=== PATIENT | female | born 1955 | race Caucasian/White ===

== ENCOUNTER 2020-06-13 14:37 | Outpatient (CLI) | payer BC, SELFPAY ==
--- NOTE | ~2020-06-13 | CT_ITS ---
EXAMINATION: CT abdomen pelvis wo con EXAM DATE: 06/13/2020 14:59 INDICATION: Right lower quadrant pain for one day. TECHNIQUE: Spiral CT of the abdomen and pelvis was performed without contrast. Axial, coronal and s agittal images were reviewed. The dose-length product (DLP) for this examination was 225.08 mGy-cm. The exposure was tailored according to patient size (auto mA exposure control), and iterative recons truction (ASIR) was used as additional dose reduction technique. There is no prior study for compari son. FINDINGS: The liver, spleen, adrenal glands and pancreas are unremarkable. Gallbladder is unremarkab le. No biliary obstruction. There is no nephrolithiasis or hydronephrosis. The uterus is unremark able. The bladder is unremarkable. There is no retroperitoneal or pelvic lymphadenopathy. The appendix is normal. The stomach and small bowel are unremarkable. There is mild sigmoid colonic diverticulosis. There is no adjacent inflammatory change to suggest diverticulitis. No free intrape ritoneal gas. The heart is normal in size. There are no pericardial or pleural effusions. The jamie g bases are unremarkable. The bones are unremarkable. IMPRESSION: No acute intra-abdominal findings. Mild colonic diverticulosis. Reviewed, dictated and finalized at location A.
== END 2020-06-13 14:38 | disposition home or self-care (01) ==
PROVIDERS: PCP Family Medicine Adolescent Medicine; Visit Provider Physician Assistant
DX: R10.31 Right lower quadrant pain (principal); K57.90 Diverticulosis of intestine, part unspecified, without perforation or abscess without bleeding
CPT/HCPCS: 74176

== ENCOUNTER → 2021-03-18 15:47 | Outpatient (CLI) | payer BC, SELFPAY ==
--- NOTE | ~2021-03-18 | MM_ITS ---
EXAMINATION: MM screening leonel BI w leon HISTORY: Screening mammogram, family history of breast cancer in her mother. TECHNIQUE: Craniocaudal and mediolateral oblique 3-D tomosynthesis images were obtained and synthetic 2-D images were generated. CAD analysis was submitted and interpreted. COMPARISON: 08/28/2018, 08/24/2017, 07/26/2016 BREAST PARENCHYMAL COMPOSITION: There are scattered areas of fibroglandular density. FINDINGS: There is no evidence of suspicious mass, calcification, or architectural distortion to sugg est malignancy in either breast. There has been no suspicious interval change. IMPRESSION: 1. No mammographic evidence of malignancy. 2. Recommend routine screening mammography in one year. BI-RADS Category 1: Negative Reviewed, dictated and finalized at location A.
== END ==
PROVIDERS: PCP Family Medicine Adolescent Medicine; Visit Provider Family Medicine Adolescent Medicine
DX: Z12.31 Encounter for screening mammogram for malignant neoplasm of breast (principal)
CPT/HCPCS: 77063; 77067

== ENCOUNTER → 2022-05-28 13:43 | Outpatient (CLI) | payer MEDICARE, OTHER, SELFPAY ==
--- NOTE | ~2022-05-28 | MM_ITS ---
EXAMINATION: MM screening leonel BI w leon HISTORY: Screening TECHNIQUE: Craniocaudal and mediolateral oblique 3-D tomosynthesis images were obtained and synthetic 2-D images were generated. CAD analysis was submitted and interpreted. COMPARISON: Comparison to multiple prior studies sequentially, with oldest reviewed study dated 07/03. BREAST PARENCHYMAL COMPOSITION: Breast composed of scattered areas of fibroglandular density FINDINGS: There is no evidence of suspicious mass, calcification, or architectural distortion to sugg est malignancy in either breast. There has been no suspicious interval change. IMPRESSION: 1. No mammographic evidence of malignancy. 2. Recommend routine screening mammography in one year. BI-RADS Category 1: Negative Reviewed, dictated and finalized at location A.
== END ==
PROVIDERS: PCP Family Medicine Adolescent Medicine; Visit Provider Family Medicine Adolescent Medicine
DX: Z12.31 Encounter for screening mammogram for malignant neoplasm of breast (principal)
CPT/HCPCS: 77063; 77067

== ENCOUNTER 2023-03-30 22:22 | Emergency (ER) | payer MEDICARE, OTHER, SELFPAY ==
--- NOTE | ~2023-03-30 | CT_ITS ---
CT of the Abdomen and Pelvis: Indication: Abdominal pain Technique: 2.5 mm axial scans were obtained through the abdomen and pelvis following intravenous adm inistration of 100 cc of Omnipaque 350. Dose reduction technique was used on this scan by utilizing a utomated exposure control and iterative reconstruction technique. The dose-length product (DLP) was 2 86.18 mGy-cm. COMPARISON: 06/13/2020 Findings: Scans through the lung bases are unremarkable. The liver, spleen, pancreas, gallbladder, adrenals and kidneys are within normal limits. No evidence of aortic aneurysm. No lymphadenopathy. There is focal wall thickening and mild inflammatory change at the proximal sigmoid colon, consistent with mild acute diverticulitis. No abscess or free air. No bowel obstruction. Images through the pelvis were performed. Urinary bladder unremarkable. No adnexal mass evident. No a scites. Impression: Mild acute diverticulitis of the proximal sigmoid colon. No abscess or free air. Reviewed, dictated and finalized at [facility]. Impression: Mild acute diverticulitis of the proximal sigmoid colon. No abscess or free air .
[2023-03-30 22:24] VITALS: BP 148/77; PULSE 90; RESP 14; TEMP 36.4; O2SAT 98
[2023-03-30 22:36] LABS: Basophils Absolute Auto 0.1 K/mm3 (0.0-0.1); Basophils Percent Auto 0.6 % (0.2-1.2); Eosinophils Absolute Auto 0.1 K/mm3 (0-0.3); Eosinophils Percent Auto 0.9 % (0-4.4); Hematocrit 39.9 % (37.0-47.0); Hemoglobin 13.4 g/dL (12.0-15.0); Immature Granulocyte Absolute 0.02 K/mm3 (0.00-0.031); Immature Granulocyte Percent A 0.2 % (0-0.5); Lymphocytes Absolute Auto 1.89 K/mm3 (0.9-3.2); Lymphocytes Percent Auto 17.9 % (18.3-44.2); Mean Corpuscular HGB Conc 33.6 g/dl (32-36); Mean Corpuscular Volume 92.4 fl (80-100); Mean Platelet Volume 10.9 fl (7.4-10.4); Monocytes Absolute Auto 0.6 K/mm3 (0.1-0.6); Monocytes Percent Auto 6.1 % (2.6-8.5); Neutrophils Absolute Auto 7.9 K/mm3 (1.3-6.7); Neutrophils Percent Auto 74.3 % (45.5-73.1); Platelet Count Result 252 k/mm3 (150-375); Red Blood Count 4.32 M/mm3 (4.2-5.4); Red Cell Distribution Width 12.7 % (11.5-14.5); White Blood Count 10.6 K/mm3 (4.5-10.0)
[2023-03-30 22:50] LABS: Alanine Aminotransferase 24 U/L (6-35); Albumin Level 4.5 g/dL (3.5-5.1); Alkaline Phosphatase 72 U/L (38-126); Anion Gap 3 mmol/L (8-16); Aspartate Amino Transferase 28 U/L (14-36); Bilirubin,Total 0.5 mg/dL (0.2-1.3); Blood Urea Nitrogen 23 mg/dL (7-17); Calcium 9.1 mg/dL (8.4-10.2); Carbon Dioxide 29 mmol/L (22-30); Chloride 106 mmol/L (98-107); Estimated CRCL calculation 45 ml/min; Estimated Glomerular Filt Rate > 60; Glucose 113 mg/dL (65-110); Lipase 124 U/L (23-300); Sodium 138 mmol/L (137-145)
[2023-03-30 23:10] LABS: Appearance Urine Clear (Clear); Bacteria Urine None Seen /hpf; Bilirubin Urine Negative (Negative); Blood Urine Negative (Negative); Color Urine Yellow (Yellow); Glucose Urine UA Negative (Negative); Ketones Urine Negative (Negative); Leukocyte Esterase Ur 1+ LEU/UL (Negative); Nitrate Urine Negative (Negative); Non Pathogenic Casts 0-2; Protein Urine Negative (Negative); RBC Urine 0-2 /hpf (0-2); Specific Grav Ur 1.027 (1.001-1.035); Squamous Epithelial Cell Urine None seen /hpf (Few); Urobilinogen Urine 0.2 mg/dL (<2.0); pH Urine 5.5 (5.0-9.0)
[2023-03-30 23:17] LABS: Add Urine Microscopic? YES
[2023-03-31 00:26] VITALS: PULSE 75; RESP 17; O2SAT 99
[2023-03-31 00:32] VITALS: BP 113/92
--- NOTE | 2023-03-31 01:14 | ED.ABDPAIN ---
HPI - Abdominal Pain General Chief Complaint: Abdominal Pain Stated Complaint: abdominal pain Time Seen by Provider: 03/31/23 00:24 History of Present Illness HPI narrative: 67-year-old female with history of diverticulitis presented the emergency department for evaluation of left lower quadrant pain that started approximately 4 PM today. Patient reports the pain started is more of like a bloating and cramping pain but then after a walk the pain became more sharp at approximately 6 PM. Patient denies any associated nausea vomiting diarrhea. Patient denies any associated chest pain or shortness of breath. Patient denies any change in bowel habits and denies any blood in her stool. Patient reports her last episode of diverticulitis was approximately 1 year ago, patient states that she has had a colonoscopy by Dr. Escalona but is unsure when she had that. Related Data Home Medications Medication Instructions Recorded Confirmed ciprofloxacin HCl 500 mg tablet 500 mg PO Q12H 01/21/22 01/21/22 (Cipro) metronidazole 500 mg tablet 500 mg PO TID 01/21/22 01/21/22 Allergies Allergy/AdvReac Type Severity Reaction Status Date / Time codeine Allergy Unknown vomitting Verified 03/31/23 00:32 Review of Systems Review of Systems: All systems reviewed & are unremarkable except as noted in HPI and below PMFSH Surgical History Surgical History (Updated 01/19/22 @ 14:56 by Akiko Figueroa) Hx of breast biopsy Family History Family History (Updated 01/21/22 @ 11:16 by Divya Barker MA) Father Acute myocardial infarction AAA (abdominal aortic aneurysm) Heart disease Mother Diabetes mellitus Breast cancer Diverticular disease Grandparent Acute myocardial infarction Cerebrovascular accident Diabetes mellitus Heart disease Pancreatic cancer Daughter Asthma Other Diabetes mellitus Sibling Diverticular disease Social History Social History (Updated 01/21/22 @ 11:18 by Divya Barker MA) Smoking status: Never smoker Second hand tobacco smoke exposure: No Alcohol intake: current Alcohol use details: occasional Substance use: never Substance use type: does not use Living arrangements: with family Occupation/Education: retired Gender identity (if verbalized by the patient): Female Sexual Orientation (if Verbalized by the Patient): Straight or Heterosexual Spiritual care concerns: No Agree to blood products: Yes Exam Narrative: APPEARANCE: Well appearing, no pain, no distress, well-nourished. HEAD: normocephalic, atraumatic. EYES: PERRLA/EOMI, conjunctivae clear. NOSE: Normal no drainage NECK: Supple. No adenopathy, no masses. RESPIRATORY: Airway patent, respirations nonlabored. Clear to auscultation bilaterally, no rales, rhonchi, wheezing. CARDIOVASCULAR: Regular rate and rhythm without murmurs rubs or gallops. ABDOMINAL: Soft, nondistended, normal bowel sounds, left lower quadrant tenderness to palpation without evidence of peritonitis MUSCULOSKELETAL: Moves all extremities. Strength/ROM intact, No edema, No calf tenderness. NEURO: Alert. Cranial nerves II through XII intact. Grossly intact SKIN: Warm, dry. Normal Color Course Course Emergency Course: 67-year-old female presented the ED for evaluation of left lower quadrant pain. Patient has a mild leukocytosis and has a normal hemoglobin. No evidence of urinary tract infection and patient's CMP was noncontributory. Patient was updated on the plan to order a CT scan to evaluate for diverticulitis. Patient declined any medications for pain control. Patient CT scan did show evidence of uncomplicated diverticulitis. Patient was treated with p.o. Augmentin in the emergency department. Patient was discharged home with Augmentin. Patient was encouraged to have follow-up with her GI physician. All questions and concerns were addressed and patient was comfortable with the plan for discharge and close follow-up. Vital Si
[2023-03-31] MEDS: AMOXICILLIN/CLAVULANATE K 875-125 MG TAB 1 TABLET PO (05:21)
== END 2023-03-31 05:25 | disposition home or self-care (01) ==
PROVIDERS: Emergency Provider Emergency Medicine; PCP Family Medicine Adolescent Medicine
DX: K57.92 Diverticulitis of intestine, part unspecified, without perforation or abscess without bleeding (principal)
CPT/HCPCS: 36415; 74177; 80053; 81001; 83690; 85025; 87086; 99284; A9270; Q9967

== ENCOUNTER → 2023-07-28 11:14 | Outpatient (CLI) | payer MEDICARE, OTHER, SELFPAY ==
--- NOTE | ~2023-07-28 | MM_ITS ---
EXAMINATION: MM screening leonel BI w leon HISTORY: Screening mammogram TECHNIQUE: Craniocaudal and mediolateral oblique 3-D tomosynthesis images were obtained and synthetic 2-D images were generated. CAD analysis was submitted and interpreted. COMPARISON: 05/28/2022, 6 I , 08/28/2018 bilateral screening mammogram examinations BREAST PARENCHYMAL COMPOSITION: There are scattered areas of fibroglandular density. FINDINGS: There is no evidence of suspicious mass, calcification, or architectural distortion to sugg est malignancy in either breast. There has been no suspicious interval change. IMPRESSION: 1. No mammographic evidence of malignancy. 2. Recommend routine screening mammography in one year. BI-RADS Category 1: Negative Reviewed, dictated and finalized at location A.
== END ==
PROVIDERS: PCP Family Medicine Adolescent Medicine; Visit Provider Family Medicine Adolescent Medicine
DX: Z12.31 Encounter for screening mammogram for malignant neoplasm of breast (principal)
CPT/HCPCS: 77063; 77067

== ENCOUNTER 2024-09-24 13:20 | Outpatient (CLI) | payer MEDICARE, OTHER, SELFPAY ==
--- NOTE | ~2024-09-24 | MM_ITS ---
EXAMINATION: MM screening leonel BI w leon HISTORY: Screening TECHNIQUE: Craniocaudal and mediolateral oblique 3-D tomosynthesis images were obtained and synthetic 2-D images were generated. CAD analysis was submitted and interpreted. COMPARISON: 07/28/2023 and dating back to 03/18/2021 BREAST PARENCHYMAL COMPOSITION: There are scattered areas of fibroglandular density. FINDINGS: Punctate calcifications detected bilaterally, stable and benign in appearance Stable parenchymal pattern without suspicious microcalcifications, architectural distortion, discrete masses or significant asymmetry. IMPRESSION: 1. No mammographic evidence of malignancy. 2. Recommend routine screening mammography in one year. BI-RADS Category 2: Benign finding(s). Reviewed, dictated and finalized at location A. O CONSULTANT
== END 2024-09-24 13:21 | disposition home or self-care (01) ==
LOC: MICIMG 13:21
PROVIDERS: PCP Family Medicine Adolescent Medicine; Visit Provider Family Medicine Adolescent Medicine
DX: Z12.31 Encounter for screening mammogram for malignant neoplasm of breast (principal)
CPT/HCPCS: 77063; 77067

== ENCOUNTER 2025-05-30 15:11 | Outpatient (CLI) | payer MEDICARE, OTHER, SELFPAY ==
--- OUTSIDE RECORDS SUMMARY | 2025-04-30 01:54 | XMS_ITS | Continuity of Care Document ---
Author Organization 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 Name Role Phone Lalito Love PA-C Unavailable Unavailable Allergies, Adverse Reactions, Alerts Substance Reaction Status Criticality Sulfa (Sulfonamide Antibiotics) Unknown Active No Information Medications Medication Instructions Dosage Effective Dates (start - stop) Status Comments Finacea 15 % topical foam apply by topical route 2 times every day a thin layer to the affected area(s) in the morning and evening 0.00 - Active Plexion 9.8 %-4.8 % topical cleanser apply by topical route every day to wet skin then massage gently 10-20 seconds, rinse, and pat dry BID - Active may substitute generic triamcinolone acetonide 0.1 % topical cream AAA BID x 2 weeks skip one week and repeat PRN poison mary kay only when flared. - Active Rebif (with albumin) 22 mcg/0.5 mL subcutaneous syringe inject 0.5 milliliter by subcutaneous route 3 times every week at the same time on the same 3 days at least 48 hours apart. 22 MCG - Active medroxyprogesterone 2.5 mg tablet take 2 tablet by oral route every day 5 MG - Active Divigel 1 mg/gram (0.1 %) transdermal gel packet apply 1 packet by topical route every day to upper thigh - Active Finacea 15 % topical foam apply by topical route 2 times every day a thin layer to the affected area(s) in the morning and evening 0.00 - No Longer Active Procedures Procedure Date Destruct benign lesions; 10-16 5 Office/OutpatientVisit, Est Office/OutpatientVisit, Est Destruct benign lesions; 10-16 4 Office/OutpatientVisit, Est Destruction, pre-malignant lesion: 1st l esion Destruction, pre-maligant lesion: 2-14 l esions, each Office/OutpatientVisit, Est Office/OutpatientVisit, Est Destruction, Pre-Maligant Lesion: 1st Le laura Destruction, Pre-Maligant Lesion: 2-14 L esions, Each OFFICE/OUTPATIENT VISIT, EST Void Encounter Number OFFICE/OUTPATIENT VISIT, EST TANGNTL BX SKIN SINGLE LES Advance Directives Directive Yes / No Effective Date File Name No Information Encounters Encounter Description Practice Location Reason(s) For Visit Diagnoses Date Provider Providers Copied on Encounter [facility], [address] [place] [address], [id number], tel:[phone] [facility] No Information 5 Kate Starkey. [address], [place], [facility], [place]. tel:[phone] Office/Outpa [facility], [facility], [address] [place] [address], [id number], tel:[phone] [facility] 6 mo fu (chief complaint) History of nonmelanoma skin cancerHistory of dysplastic nevusSeborrhei c keratosesMulti ple benign neviCherry angiomaSeborrh eic keratoses, inflamed Jan- 5 Kate Starkey. [address], [place], [facility], [place]. tel:[phone] [facility], [address] [place] [address], [id number], [place] tel:[phone] [facility] 6 month recheck (chief complaint) History of nonmelanoma skin cancerHistory of dysplastic nevusSeborrhei c keratosesCherr y angiomaMultipl e benign neviVaricose veins of lower leg Sep-1 0-202 4 Kate Lalito. [address] [place], [address], [place]. tel:[phone] [facility], [address] [place] [address], [id number], [place] tel:[phone] [facility] Seborrheic keratoses, inflamed January- 4 Kate Starkey. [address] [place], [address], [place]. tel:[phone] Office/Outpa tientVisit, [facility], [address] [place] [address], [id number], [place] tel:[phone] [facility] 6 mo fu (chief complaint) History of dysplastic nevusHistory of nonmelanoma skin cancerVaricose veins of both lower extremities, unspecified whether complicatedSeb orrheic keratosesCherr y angiomaRosacea Dec- 2- 4 Kate Lalito. [address] [place], [address], [place]. tel:[phone] [facility], [address] [place] [address], [id number], [place] tel:[phone] [facility] Actinic keratoses Dec-0 3 Kate Lalito. [address] [place], [address], [place]. tel:[phone] Office/Outpa tientVisit, [facility], [address] [place] [address], [id number], [place] tel:[phone] [facility] 6 month UBSE (chief complaint) History of nonmelanoma skin cancerHistory of dysplastic nevusCherry angiomaMultipl e benign neviSeborrheic keratoses Sep- 2-202 3 Kate Lalito. [address] [place], [address], [place]. tel:[phone] Referring Provider: Lalito Cabrera, [address] [place], [address]. tel:[phone] Office/Outpa tientVisit, [facility], [address] [place] [address], [id number], [place] tel:[phone] [facility] UBSE (chief complaint) History of nonmelanoma skin cancerActinic keratosesCherr y angiomaHistory of dysplastic nevusSeborrhei c keratosesMulti ple benign neviRosacea 3 Kate Starkey. [address] [place], [address], [place]. tel:[phone] Referring Provider: Lalito Cabrera, [address] [place], [address]. tel:[phone] [facility], [address] [place] [address], [id number], [place] tel:[phone] [facility] No Information 2 Kate Starkey. [address] [place], [address], [place]. tel:[phone] OFFICE/OUTPA TIENT VISIT, [facility] [place], [facility], [address] [place] [address], [id number], [place] tel:[phone] [facility] And [facility] Surgery FBSE (chief complaint) History of dysplastic nevusHistory of nonmelanoma skin cancerCherry angiomaMultipl e benign neviSeborrheic keratoses 2 Kate Starkey. [address] [place], [address], [place]. tel:[phone] [facility], [address] [place] [address], [id number], [place] tel:[phone] [facility] No Information 2 Douglas Noble. [address] [place] [address], [address], [place]. tel:[phone] OFFICE/OUTPA TIENT VISIT, [facility], [address] [facility], [place], [place], [id number], [place] tel:[phone] [facility] And [facility] Surgery UBSE (chief complaint) Neoplasm of uncertain behaviorHistor y of dysplastic nevusHistory of nonmelanoma skin cancerMultiple benign nevi 1 Kate Lalito. [address] [facility], [place], [address], [place]. tel:[phone] Family History Family Member Type Diagnosis Age At Onset Mother Problem Arthritis Father Problem Skin cancer Mother Problem Diabetes mellitus Father Problem Arthritis Payers Payer name Insurance type Covered libertarian ID Authorace keating(s) Medicare MB [id number] [employer] Insurance [employer] [id number] Social History Type Description Quantity Date Captured Comments Alcohol Use Details Unknown Caffeine Use Details Unknown Tobacco Use Status No Information Smoking Status No Information Sex Female Chief Complaint And Reason For Visit No Information Reason For Referral Reason For Referral No Information Plan Of Treatment Date Type Action Status Goal Tobacco screening. Due on Ap due Goal DEXA. Due on due Goal Colonoscopy. Due on 025 due Goal Annual Physical Exam. Due on due Goal Medicare wellness visit. Due on due Goal FIT-DNA. Due on due Goal FIT. Due on due Goal Mammogram. Due on due Goal Hepatitis C screening. Due o n due Goal Colonoscopy. Due on 025 due Goal Hepatitis C screening. Due o n due Goal Annual Physical Exam. Due on due Goal Mammogram. Due on due Goal FIT-DNA. Due on due Goal DEXA. Due on due Goal Medicare wellness visit. Due on due Goal FIT. Due on due Goal FIT-DNA. Due on due Goal DEXA. Due on due Goal FIT. Due on due Goal Medicare wellness visit. Due on due Goal Hepatitis C screening. Due o n due Goal Annual Physical Exam. Due on due Goal Colonoscopy. Due on due Goal Mammogram. Due on due Goal Annual Physical Exam. Due on due Goal DEXA. Due on due Goal Colonoscopy. Due on due Goal FIT-DNA. Due on due Goal FIT. Due on due Goal Medicare wellness visit. Due on due Goal Mammogram. Due on due Goal Hepatitis C screening. Due o n due Goal DEXA. Due on due Goal Hepatitis C screening. Due o n due Goal Annual Physical Exam. Due on due Goal Colonoscopy. Due on due Goal Medicare wellness visit. Due on due Goal FIT-DNA. Due on due Goal Mammogram. Due on due Goal FIT. Due on due Goal Colonoscopy. Due on 023 due Goal Mammogram. Due on due Goal FIT-DNA. Due on due Goal DEXA. Due on due Goal Medicare wellness visit. Due on due Goal Hepatitis C screening. Due o n due Goal FIT. Due on due Goal Annual Physical Exam. Due on due Goal DEXA. Due on due Goal FIT. Due on due Goal FIT-DNA. Due on due Goal Colonoscopy. Due on due Goal Hepatitis C screening. Due o n due Goal Annual Physical Exam. Due on due Goal Mammogram. Due on due Goal Medicare wellness visit. Due on due Goal Hepatitis C screening. Due o n due Goal FIT-DNA. Due on due Goal FIT. Due on due Goal CT-Colonography. Due on due Goal Annual Physical Exam. Due on due Goal Mammogram. Due on due Goal Medicare wellness visit. Due on due Goal Colonoscopy. Due on 023 due Goal FIT-DNA (Colorectal CA Scree barron). Due on due Goal Mammogram. Due on due Goal Pap/HPV testing. Due on due Goal HIV screen. Due on due Goal Colonoscopy. Due on 022 due Goal Hep C Screening. Due on due Goal Medicare wellness visit. Due on due Goal Annual Physical Exam. Due on due Goal PAP. Due on due Goal FOBT. Due on due Goal HIV screen. Due on due Goal Hep C Screening. Due on due Goal Annual Physical Exam. Due on due Goal FIT-DNA (Colorectal CA Scree barron). Due on due Goal PAP. Due on due Goal FOBT. Due on due Goal Colonoscopy. Due on 022 due Goal Medicare wellness visit. Due on due Goal Pap/HPV testing. Due on due Goal Mammogram. Due on due Goal Annual Physical Exam. Due on due Goal Pneumococcal 13 (Prevnar). D ue on due Goal Td vaccine. Due on 21 due Goal Lipid panel. Due on 021 due Goal Pneumococcal vaccine (Pneumo vax). Due on due Goal FIT-DNA (Colorectal CA Blakee barron). Due on due Goal Influenza Vaccine. Due on No due Goal PAP. Due on due Goal FOBT. Due on due Goal Colonoscopy. Due on due Goal Medicare wellness visit. Due on due Goal Pap/HPV testing. Due on due Goal Mammogram. Due on due Goal DEXA scan. Due on due Goal Tdap. Due on due Appointment DANIAL GONSALES BOOKED Appointment DANIAL GONSALES BOOKED History Of Present Illness Encounter Date Complaint History Of Prese nt Illness 6 mo fu 6 month recheck 6 mo fu 6 month UBSE UBSE FBSE UBSE 66 year old new patient presents today for an UBSE. She was previously a patient of Edgar Love at [facility]. Patient states she has no areas of concern today. Patient states she has a history of rosacea, AKs, and believes she has had a skin cancer removed from her scalp but is unsure. She also has history of dysplastic nevi. Functional Status Date Functional Assessmen t No Information Instructions Date Instruction Additional Infor mation After treatment opti ons, risks and benefits are discussed with the patient, verbal consent is given for cryotherapy. Discussed a blistering response is normal. Postprocedure care discussed. I specifically discussed the risk of scarring and hypopigmentation.Total lesions treated: 5 Related to Seborrheic keratoses, inflamed -Follow up for any n ew or changing nevi Related to Multiple benign nevi -I discussed that se borrheic keratoses are benign and need no treatment unless these were itching, bleeding, caught on clothing or bothersome. Related to Seborrheic keratoses - Reassurance that t hese are benign and need no treatment unless they were bothersome such as bleeding or rubbed by clothing. 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 Follow up: 6 months Related to History of nonmelanoma skin cancer A pply appropriate SPF 30 or greater sunscreen with UVA and UVB protection and reapply as instructed. I t is suggested to wear protective clothing and a wide-brimmed hat when in the sun A void sunbathing and tanning beds W hen outside, seek shade and avoid hours when the sun has the potential to do the most damage Related to History of dysplastic nevus Pt doesn't have any pain or aching with these. Patient declines treatment today. Related to Varicose veins of lower leg -Follow up for any n ew or changing nevi Related to Multiple benign nevi - Reassurance that t hese are benign and need no treatment unless they were bothersome such as bleeding or rubbed by clothing. 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 Follow up: 6 months Related to History of nonmelanoma skin cancer A pply appropriate SPF 30 or greater sunscreen with UVA and UVB protection and reapply as instructed. I t is suggested to wear protective clothing and a wide-brimmed hat when in the sun A void sunbathing and tanning beds W hen outside, seek shade and avoid hours when the sun has the potential to do the most damage Related to History of dysplastic nevus After treatment opti ons, risks and benefits are discussed with the patient, verbal consent is given for cryotherapy. Discussed a blistering response is normal. Post-procedure care discussed. I specifically discussed the risk of scarring and hypopigmentation. She will keep her already scheduled follow up appointment. Related to Seborrheic keratoses, inflamed Patient is given ref ills of Plexion cleanser and Finacea foam at her request. Related to Rosacea I discussed that the se are benign lesions associated with genetics and aging. No treatment needed unless desired by the patient for itching bleeding pain etc Related to Seborrheic keratoses - Reassurance that t hese are benign and need no treatment unless they were bothersome such as bleeding or rubbed by clothing. 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 Related to Varicose veins of both lower extremities, unspecified whether complicated The patient should k eep recommended follow up appts, wear sunscreen daily and perform self-exams at home. Follow up: 6 months Related to History of nonmelanoma skin cancer A pply appropriate SPF 30 or greater sunscreen with UVA and UVB protection and reapply as instructed. I t is suggested to wear protective clothing and a wide-brimmed hat when in the sun A void sunbathing and tanning beds W hen outside, seek shade and avoid hours when the sun has the potential to do the most damage Related to History of dysplastic nevus After treatment opti ons, risks and benefits are discussed with the patient, verbal consent is given for cryotherapy. Discussed a blistering response is normal. Post-procedure care discussed. I specifically discussed the risk of scarring and hypopigmentation.She will keep her already scheduled follow-up appointment Related to Actinic keratoses -I discussed that se borrheic keratoses are benign and need no treatment unless these were itching, bleeding, caught on clothing or bothersome. Related to Seborrheic keratoses - Reassurance that t hese are benign and need no treatment unless they were bothersome such as bleeding or rubbed by clothing. 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 I t is suggested to wear protective clothing and a wide-brimmed hat when in the sun A void sunbathing and tanning beds W hen outside, seek shade and avoid hours when the sun has the potential to do the most damage Related to History of dysplastic nevus -Follow up for any n ew or changing nevi Related to Multiple benign nevi The patient should k eep recommended follow up appts, wear sunscreen on a daily basis and perform self-exams at home. Follow up: 6 months Related to History of nonmelanoma skin cancer - Reassurance that t hese are benign and need no treatment unless they were bothersome such as bleeding or rubbed by clothing. 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 Related to Seborrheic keratoses After treatment opti ons, risks and benefits are discussed with the patient, verbal consent is given for cryotherapy. Discussed a blistering response is normal. Postprocedure care discussed. I specifically discussed the risk of scarring and hypopigmentation.Total lesions treated:2 Related to Actinic keratoses The patient should k eep recommended follow up appts, wear sunscreen daily and perform self-exams at home. Follow up: 6 months Related to History of nonmelanoma skin cancer At the patient's [facility] uest she is given a refill of her Plexion cleanser. She will use this twice a day. She can also continue her Finacea gel twice daily. She states she has enough of this at home. Related to Rosacea The patient should pebbles nicholson recommended follow-ups, wear sunscreen on a daily basis, and perform self exams at home. Related to History of dysplastic nevus -I discussed that se borrheic keratoses are benign and need no treatment unless these were itching, bleeding, caught on clothing or bothersome. Related to Seborrheic keratoses The patient should f ollow-up twice yearly, wear sunscreen on a daily basis, and perform self exams at home. Related to History of dysplastic nevus Follow up for new or changing Ne vi Related to Multiple benign nevi - Reassurance that t hese are benign and need no treatment unless they were bothersome such as bleeding or rubbed by clothing. 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 Follow up: 6 months Related to History of nonmelanoma skin cancer After treatment opti ons risks and benefits are discussed with the patient, verbal consent is given for shave biopsy. The area is prepped and marked. A flat persona blade is used to biopsy the lesion after being anesthetized with 1% lidocaine with epinephrine. Specifically discussed scarring risk. Hemostasis was achieved with aluminum chloride. Wound care instructions are given. Patient tolerated procedure well. The patient will be notified of results. 1 shave biopsy performed today Related to Neoplasm of uncertain behavior T he patient should maintain twice yearly follow-ups, wear sunscreen on a daily basis, and perform self exams at home Related to History of nonmelanoma skin cancer F ollow-up for new or changing nevi Related to History of dysplastic nevus F ollow-up for new or changing nevi Related to Multiple benign nevi Assessments Type Assessment Date No Information Patient Care Teams Name Effective Dates (start - stop) Status Members No Information
--- OUTSIDE RECORDS SUMMARY | 2025-05-30 15:17 | XMS_ITS | Clinical Summary ---
Author Organization [facility] Address [address] [facility] [place] [address] Care Team Providers Care Thread Puller Name Role Phone Eduin Ruby MD Primary Care Provider + Source Comments [facility],non-owned Affiliates and Associated Physician Practices is amultiple site organization consisting of ambulatory clinics and hospital sitesin [place], [place], [place] and [place]. This disclosure is being madepursuant to the Care Everywhere program and may not contain all information available regarding this patient. Last updated 18.[facility] Allergies Active Allergy Reactions Criticality Noted Date Comments Amoxicillin Urticaria Medium 04/19/2023 Codeine GI Discomfort 01/16/2022 Medications * Be aware that medications may not be up to date on this document. Alwaysverify current medications with the patient. No known medications Active Problems No known active problems Immunizations Immunization Administration Dates Next Due COVID MICHELLE PRIMARY 18+YR 07/31/2021, INFLUENZA VACCINE 07/11/2023 Family History Medical History Relation Name Comments CAD (Coronary Artery Disease) Father Hyperlipidemia Father Hypertension Father Cancer - Breast Mother Diabetes - Type 2 Mother Relation Name Status Comments Father Mother Alive Social History Tobacco Use Types Packs/Day Years Used Date Smoking Tobacco: Never Smokeless Tobacco: Never Tobacco Cessation:Counseling Given: Not Answered Alcohol Use Standard Drinks/Week Comments Never 0 (1 standard drink = 0.6 oz pur e alcohol) PHQ-2 Answer Date Recorded Patient Health Questionnaire-2 Score 0 07/21/2023 Comments Unknown Sex and Gender Information Value Date Recorded Sex Assigned at Female 08/02/2023 6:19 AM CDT Legal Sex Female 5:47 PM CDT Gender Identity Female 08/02/2023 6:19 AM CDT Sexual Orientation Not on file Last Filed Vital Signs Vital Sign Reading Time Taken Comments Blood Pressure 140/73 07/02/2024 4:45 AM CDT Pulse 68 07/02/2024 4:45 AM CDT Temperature 36.5 C (97.7 F) 07/02/2024 4:20 AM CDT Respiratory Rate 16 07/02/2024 4:45 AM CDT Oxygen Saturation 98% 07/02/2024 4:45 AM CDT Inhaled Oxygen Concentration - - Weight 54.4 kg (120 lb) 07/02/2024 4:20 AM CDT Height 154.9 cm (5' 1) 07/02/2024 4:20 AM CDT Body Mass Index 22.67 07/02/2024 4:20 AM CDT Plan of Treatment Health Maintenance Due Date Last Done Comments BONE DENSITY TESTING 1955 COLOGUARD (AGES 45-75) - COL ON CA SCREENING 1956 COLON MONITORING 1956 COLONOSCOPY - COLON CA SCREENING 1956 CT COLONOGRAPHY - COLON CA SCREENING 1955 Colorectal Cancer Screening 1956 FIT - COLON CA SCREENING 1956 FLEX SIG - COLON CA SCREENING 1956 MAMMOGRAM 1955 MEDICARE AWV 12 MONTHS 1956 HEPATITIS C SCREENING 07/26/1974 DTAP/TDAP/TD VACCINES (1 - Tdap) 1975 PNEUMOCOCCAL VACCINE 50+ (1 of 1 - PCV) 2006 ZOSTER VACCINE (1 of 2) 2006 COVID-19 VACCINE (3 - 2023-2 5 season) 2024 07/31/2021, 12/10/2020 DEPRESSION SCREENING 10/03/2024 04/19/2023 INFLUENZA VACCINE (#1) 2025 07/11/2023 LIPID TESTING 04/28/2028 04/28/2023 Respiratory Syncytial Virus (RSV) Vaccine Pt: or over 60 yrs (1 - 1-dose 75+ series) 2031 HEPATITIS B VACCINE Aged Out No longe r eligible based on patient's age to complete this topic HIB VACCINE Aged Out No longer eligi ble based on patient's age to complete this topic HPV VACCINE Aged Out No longer eligi ble based on patient's age to complete this topic MENINGOCOCCAL (Group B) VACCINE SHARED DECISION-MAKING Aged Out No longer eligible based on patient's age to complete this topic MENINGOCOCCAL GROUPS A/C/Y/W VACCINE Aged Out No longer eligible b ased on patient's age to complete this topic Procedures Procedure Name Priority Date/Time Associated Diagnosis Comments LIPID PROFILE Routine 04/28/2023 9:24 AM CDT Diverticulitis Polyneuropathy Screening for lipoid disorders from Last 3 Months or Most Recently Relevant to Health Maintenance Results * (ABNORMAL) LIPID PROFILE (04/28/2023 9:24 AM CDT) Cholesterol 226(H) 110 - 200 mg/dL 04/28/2023 11:15 AM CDT [facility] ([facility]) Triglycerides 78 40 - 150 mg/dL 04/28/2023 11:15 AM CDT [facility] ([facility]) HDL 69(H) 40 - 60 mg/dL 04/28/2023 11:15 AM CDT [facility] ([facility]) LDL Direct 102(H) 0 - 99 mg/dL 04/28/2023 11:15 AM CDT [facility] ([facility]) VLDL 16 0 - 40 mg/dL 04/28/2023 11:15 AM CDT [facility] ([facility]) CHOL/HDL RATIO 3.00 0.00 - 4.98 04/28/2023 11:15 AM CDT [facility] ([facility]) Blood BLOOD SPECIMEN / Unknown Lab Venipuncture / Unknown 04/28/2023 9:24 AM CDT 04/28/2023 9:24 AM CDT us Eduin Ruby MD LAB - CHEMISTRY ORDERABL ES Final Result [facility] ([facility]) [address] [place] [address] from Last 3 Months or Most Recently Relevant to Health Maintenance Insurance MEDICARE [facility] [place] [id number] Care Teams Thread Puller Relationship Specialty Start Date End Date Eduin Ruby MD [address] [place] [id number] PCP - General Family Medicine 01/16/22
[2025-05-30 15:59] LABS: Hematocrit 38.5 % (37.0-47.0); Hemoglobin 12.9 g/dL (12.0-15.0); Immature Granulocyte Percent A 0.3 % (0-0.5); Lymphocytes Absolute Auto 1.74 K/mm3 (0.9-3.2); Mean Corpuscular HGB Conc 33.5 g/dl (32-36); Mean Corpuscular Hemoglobin 30.6 pg (26-34); Mean Corpuscular Volume 91.4 fl (80-100); Nucleated Red Blood Cells Absolute Auto 0.000 K/mm3 (0.0-0.012); Nucleated Red Blood Cells Perc 0.0 % (0.0-0.2); Platelet Count Result 253 k/mm3 (150-375); Red Blood Count 4.21 M/mm3 (4.2-5.4); White Blood Count 6.4 K/mm3 (4.5-10.0)
[2025-05-30 16:14] LABS: Alanine Aminotransferase 22 U/L (6-35); Albumin Level 4.3 g/dL (3.5-5.1); Alkaline Phosphatase 61 U/L (38-126); Anion Gap 7 mmol/L (4-12); Aspartate Amino Transferase 28 U/L (14-36); Bilirubin,Total 0.6 mg/dL (0.2-1.3); Blood Urea Nitrogen 18 mg/dL (7-17); Calcium 9.3 mg/dL (8.4-10.2); Carbon Dioxide 28 mmol/L (22-30); Chloride 105 mmol/L (98-107); Estimated Glomerular Filt Rate > 60; Glucose 102 mg/dL (65-110); Potassium 4.1 mmol/L (3.4-5.0); Sodium 140 mmol/L (137-145); Total Protein 7.1 g/dL (6.3-8.2)
[2025-05-30 17:15] LABS: Thyroid Stimulating Hormone Reflex 0.278 uIU/mL (0.465-4.68)
[2025-05-30 18:21] LABS: Free T4 Free Thyroxine Reflex 1.08 ng/dL (0.78-2.19)
[2025-05-30 19:26] LABS: Total Triiodothyronine (T3) 1.20 NG/ML (0.82-1.58)
== END 2025-05-30 15:12 | disposition home or self-care (01) ==
PROVIDERS: PCP Family Medicine Adolescent Medicine; Visit Provider Nurse Practitioner Family
DX: K57.90 Diverticulosis of intestine, part unspecified, without perforation or abscess without bleeding (principal); Z82.49 Family history of ischemic heart disease and other diseases of the circulatory system; L65.0 Telogen effluvium
CPT/HCPCS: 36415; 80053; 84439; 84443; 84480; 85025

== ENCOUNTER 2025-06-13 08:44 | Emergency (ER) | payer MEDICARE, OTHER, SELFPAY ==
--- OUTSIDE RECORDS SUMMARY | 2025-04-30 01:54 | XMS_ITS | Continuity of Care Document ---
Author Organization [facility] Address [address] [place] [address] Phone Care Team Providers Care Coil Winder Strap Name Role Phone Lalito Love PA-C Unavailable [...] Diagnoses Date Provider Providers Copied on Encounter [facility], [address] [place] [address], [id number], tel:[phone] [facility] No Information 5 Kate Starkey. [address] [place], [place], [facility], [place]. tel:[phone] Office/Outpa [facility], [facility], [address] [place] [address], [id number], tel:[phone] [facility] 6 mo fu (chief complaint) History of nonmelanoma skin cancerHistory of dysplastic nevusSeborrhei c keratosesMulti ple benign neviCherry angiomaSeborrh eic keratoses, inflamed Jan- 5 Kate Starkey. [address] [place], [facility], [place]. tel:[phone] [facility], [address] [place] [address], [id number], [place] tel:[phone] [facility] 6 month recheck (chief complaint) History of nonmelanoma skin cancerHistory of dysplastic nevusSeborrhei c keratosesCherr y angiomaMultipl e benign neviVaricose veins of lower leg Sep-1 0-202 4 Kate Lalito. [address] [place], [address], [place]. tel:[phone] [facility], [address] [place] [address], [id number], [place] tel:[phone] [facility] Seborrheic keratoses, inflamed January- 4 Kate Starkey. [address] [place], [address], [place]. tel:[phone] Office/Outpa tientVisit, [facility], [address] [place] [address], [id number], [place] tel:[phone] [facility] 6 mo fu (chief complaint) History of dysplastic nevusHistory of nonmelanoma skin cancerVaricose veins of both lower extremities, unspecified whether complicatedSeb orrheic keratosesCherr y angiomaRosacea Dec- 2- 4 Kate Lalito. [address] [place], [address], [place]. tel:[phone] [facility], [address] [place] [address], [id number], [place] tel:[phone] [facility] Actinic keratoses Dec-0 3 Kate Lalito. [address] [place], [address], [place]. tel:[phone] Office/Outpa tientVisit, [facility], [address] [place] [address], [id number], [place] tel:[phone] [facility] 6 month UBSE (chief complaint) History of nonmelanoma skin cancerHistory of dysplastic nevusCherry angiomaMultipl e benign neviSeborrheic keratoses Sep- 2-202 3 Kate Lalito. [address] [place], [address], [place]. tel:[phone] Referring Provider: Lalito Cabrera, [address] [place], [address]. tel:[phone] Office/Outpa tientVisit, [facility], [address] [place] [address], [id number], [place] tel:[phone] [facility] UBSE (chief complaint) History of nonmelanoma skin cancerActinic keratosesCherr y angiomaHistory of dysplastic nevusSeborrhei c keratosesMulti ple benign neviRosacea 3 Kate Starkey. [address] [place], [address], [place]. tel:[phone] Referring Provider: Lalito Cabrera, [address] [place], [address]. tel:[phone] [facility], [address] [place] [address], [id number], [place] tel:[phone] [facility] No Information 2 Kate Starkey. [address] [place], [address], [place]. tel:[phone] OFFICE/OUTPA TIENT VISIT, [facility], [address] [place] [address], [id number], [place] tel:[phone] [facility] And Plastic Surgery FBSE (chief complaint) History of dysplastic nevusHistory of nonmelanoma skin cancerCherry angiomaMultipl e benign neviSeborrheic keratoses 2 Kate Starkey. [address] [place], [address], [place]. tel:[phone] [facility], [address] [place] [address], [id number], [place] tel:[phone] [facility] No Information 2 Douglas Noble. [address] [place] [address], [address], [place]. tel:[phone] OFFICE/OUTPA TIENT VISIT, [facility], [address] [facility], [place], [place], [id number], [place] tel:[phone] [facility] And Plastic Surgery UBSE (chief complaint) Neoplasm of uncertain behaviorHistor y of dysplastic nevusHistory of nonmelanoma skin cancerMultiple benign nevi 1 Kate Lalito. [address] [facility], [place], [address], [place]. tel:[phone] Family History Family Member Type Diagnosis Age At Onset Father Problem Arthritis Mother Problem Arthritis Father Problem Skin cancer Mother Problem Diabetes mellitus Payers Payer name Insurance type Covered libertarian ID Authorace keating(s) Medicare MB [id number] [employer] [id number] Social History Type Description Quantity Date Captured [...] previously a patient of [facility] at [facility]. Patient states she has no areas of [...] clothing or bothersome. Related to Seborrheic keratoses Follow up for new or changing Ne [...] hypopigmentation.Total lesions treated:2 Related to Actinic keratoses At the patient's [facility] uest she is given a [...] today Related to Neoplasm of uncertain behavior F ollow-up for new or changing nevi Related to History of dysplastic nevus T he patient should maintain twice yearly [...]
--- NOTE | ~2025-06-13 | CT_ITS ---
Exam: CT abdomen and pelvis with contrast Clinical History: [Left lower quadrant pain. History of diverticulitis ] Comparison: [ CT abdomen and pelvis 03/31/2023] Technique: Multiple axial CT images of the abdomen and pelvis were obtained with IV contrast. Sagittal and coronal reformatted images were obtained. FINDINGS: Lung bases: [Lung bases are clear. ] Liver: [There are a few too small to characterize low-attenuation lesions in the liver similar to the prior study. No mass.] [ No intrahepatic biliary duct dilatation.] Gallbladder: [ No wall thickening or stones.] Common bile duct: [ Normal caliber.] [ No stones.] Spleen: [ Within normal limits.] Pancreas: [ No mass. No pancreatic fluid collection.] Adrenals: [ No masses.] Kidneys: [ No masses. No hydronephrosis.][ ] Lymph nodes: [ No adenopathy in the abdomen or pelvis.] Stomach, small bowel and colon: [ No bowel wall thickening or obstruction.] Short segment focal bowel wall thickening with a few diverticula and surrounding fat stranding in the descending colon Peritoneum cavity: [ No mesenteric fat stranding or fluid.] Bladder: [ Unremarkable.] Osseous structures: [ No acute fracture or destructive lesion.] [ Multilevel degenerative change in the visualized spine.] Abdominal aorta: [ No aneurysm.] Additional findings: Prominent vasculature in the pelvis similar to the prior study. Consider pelvic congestion syndrome. IMPRESSION: 1. Short segment focal thickening of the maldonado of the distal descending colon with a few diverticula and surrounding fat stranding. The findings are favored to be secondary to acute diverticulitis. Recommend follow-up to resolution to exclude an underlying mass. 2. Prominent vasculature in the pelvis similar to the prior study. Consider pelvic congestion syndrome. Reviewed, dictated and finalized at location Q. IMPRESSION: 1. Short segment focal thickening of the maldonado of the distal descending colon w ith a few diverticula and surrounding fat stranding. The findings are favored t o be secondary to acute diverticulitis. Recommend follow-up to resolution to ex clude an underlying mass. 2. Prominent vasculature in the pelvis similar to the prior study. Consider pel nancy congestion syndrome.
[2025-06-13 08:55] VITALS: BP 140/69; PULSE 85; RESP 16; TEMP 36.6; O2SAT 98
--- OUTSIDE RECORDS SUMMARY | 2025-06-13 09:09 | XMS_ITS | Clinical Summary ---
Author Organization [facility] Address [address] [facility] [place] [address] Care Team Providers Care Underground Mining Section Foreman Name Role Phone Eduin Ruby MD Primary Care Provider + Source Comments [facility],non-owned Affiliates and Associated Physician Practices is amultiple site organization consisting of ambulatory clinics and hospital sitesin [place], [place], [place] and [place]. This disclosure is being madepursuant to the Care Everywhere program and may not contain all information available regarding this patient. Last updated 18.[facility] Allergies Active Allergy Reactions Criticality Noted Date [...] 2006 ZOSTER VACCINE (1 of 2) 2006 DEPRESSION SCREENING 10/03/2024 04/19/2023 COVID-19 VACCINE (3 - 2024-2 6 season) 2025 07/31/2021, 12/10/2020 INFLUENZA VACCINE (#1) 2025 07/11/2023 LIPID TESTING [...] - 200 mg/dL 04/28/2023 11:15 AM CDT [facility] ([facility]) Triglycerides 78 40 - 150 mg/dL 04/28/2023 11:15 AM CDT [facility] ([facility]) HDL 69(H) 40 - 60 mg/dL 04/28/2023 11:15 AM CDT [facility] ([facility]) LDL Direct 102(H) 0 - 99 mg/dL 04/28/2023 11:15 AM CDT [facility] ([facility]) VLDL 16 0 - 40 mg/dL 04/28/2023 11:15 AM CDT [facility] ([facility]) CHOL/HDL RATIO 3.00 0.00 - 4.98 04/28/2023 11:15 AM CDT [facility] ([facility]) Blood BLOOD SPECIMEN / Unknown Lab Venipuncture / Unknown 04/28/2023 9:24 AM CDT 04/28/2023 9:24 AM CDT us Eduin Ruby MD LAB - CHEMISTRY ORDERABL ES Final Result [facility] ([facility]) [address] [place] [address] from Last 3 Months or Most Recently Relevant to Health Maintenance Insurance MEDICARE [facility] [address] Care Teams Underground Mining Section Foreman Relationship Specialty Start Date End Date Eduin Ruby MD [address] [place] [id number] PCP - General Family Medicine 01/16/22
[2025-06-13 09:11] LABS: Hematocrit 40.6 % (37.0-47.0); Hemoglobin 13.4 g/dL (12.0-15.0); Immature Granulocyte Percent A 0.2 % (0-0.5); Lymphocytes Absolute Auto 1.56 K/mm3 (0.9-3.2); Mean Corpuscular HGB Conc 33.0 g/dl (32-36); Mean Corpuscular Hemoglobin 30.9 pg (26-34); Mean Corpuscular Volume 93.5 fl (80-100); Nucleated Red Blood Cells Absolute Auto 0.000 K/mm3 (0.0-0.012); Nucleated Red Blood Cells Perc 0.0 % (0.0-0.2); Platelet Count Result 259 k/mm3 (150-375); Red Blood Count 4.34 M/mm3 (4.2-5.4); White Blood Count 8.8 K/mm3 (4.5-10.0)
--- NOTE | 2025-06-13 09:20 | ED.ABDPAIN ---
HPI - Abdominal Pain General Chief Complaint: Abdominal Pain Stated Complaint: abdominal pain Time Seen by Provider: 06/13/25 08:58 History of Present Illness HPI narrative: Patient is a 69-year-old female who presents to the ER with left lower quadrant abdominal pain. She reports she has a history of diverticulitis and her last episode was in April, 2 months ago. Patient reports her pain started this morning. She reports at rest is approximately 3 to 4/10 but it increases with movement. Patient denies any recent fevers, urinary symptoms, or nausea/vomiting. She denies any other pertinent medical history. Patient reports her last bowel movement was this morning and was normal for her. Related Data Allergies Allergy/AdvReac Type Severity Reaction Status Date / Time amoxicillin (From Augmentin) Allergy Mild rash Verified 06/13/25 09:11 clavulanic acid (From Allergy Mild rash Verified 06/13/25 09:11 Augmentin) codeine Allergy Unknown vomitting Verified 06/13/25 09:11 metronidazole AdvReac Mild Other Verified 06/13/25 09:11 Review of Systems Review of Systems: All systems reviewed & are unremarkable except as noted in HPI and below PMFSH Past Medical History Medical History Acute diverticulitis (04/2023) Surgical History Surgical History Hx of breast biopsy Family History Family History Father Acute myocardial infarction AAA (abdominal aortic aneurysm) Heart disease Mother Diabetes mellitus Breast cancer Diverticular disease Grandparent Acute myocardial infarction Cerebrovascular accident Diabetes mellitus Heart disease Pancreatic cancer Daughter Asthma Other Diabetes mellitus Sibling Diverticular disease Social History Social History Smoking status: Never smoker Second hand tobacco smoke exposure: No Alcohol intake: current Alcohol use details: occasional Substance use: never Substance use type: does not use Do You Feel Safe in your Home?: Yes Lack of Transportation: No Lack of Food: Never True Current Housing: I Have Housing Concerned About Future Housing: No Difficulty Paying Gas/Electric Bills: No Difficulty Paying for Meds: No Currently Unemployed: No Education: Associate Degree Difficulty w/ Childcare or Family Care: No Living arrangements: with family Occupation/Education: retired Gender identity (if verbalized by the patient): Female Sexual Orientation (if Verbalized by the Patient): Straight or Heterosexual Spiritual care concerns: No Agree to blood products: Yes Exam Narrative: GENERAL: Well appearing, well-nourished, non-toxic, in no acute distress. HEAD: Normocephalic, atraumatic. NECK: Supple. No adenopathy, no masses. RESPIRATORY: Airway patent, respirations nonlabored. Clear to auscultation bilaterally, no rales, rhonchi, wheezing. CARDIOVASCULAR: Regular rate and rhythm without murmurs, rubs, or gallops. Peripheral pulses 2+ and equal bilaterally. ABDOMINAL: Soft, left lower quadrant tenderness, nondistended, no hepatosplenomegaly. Normoactive BS. MUSCULOSKELETAL: Moves all extremities. Strength/ROM intact without gross deformities. SKIN: Warm, dry, normal color. No rashes. NEURO: A&O X3. Speech clear. Cranial nerves II-XII intact. No ataxic movements. PSYCHIATRIC: Appropriate mood and affect. Normal interaction. Course Vital Signs Vital signs: Vital Signs Temperature 36.6 C 06/13/25 08:55 Pulse Rate 85 06/13/25 08:55 Respiratory Rate 16 06/13/25 08:55 Blood Pressure 140/69 06/13/25 08:55 Pulse Oximetry 98 06/13/25 08:55 Oxygen Delivery Room Air 06/13/25 08:55 Temperature 36.6 C 06/13/25 08:55 Pulse Rate 85 06/13/25 08:55 Respiratory Rate 16 06/13/25 08:55 Blood Pressure 140/69 06/13/25 08:55 Pulse Oximetry 98 06/13/25 08:55 Oxygen Delivery Room Air 06/13/25 08:55 MDM - Abdominal Pain MDM Narrative Medical decision making narrative: Patient is a 69-year-old female who presents to the ER with left lower quadrant abdominal pain. She reports she has a history of diverticulitis and her last episode was in April, 2 months ago. Patient reports her pain started this morning. She reports at rest is approximately 3 to 4/10 but it increases with movement. Patient denies any recent fevers, urinary symptoms, or nausea/vomiting. She denies any other pertinent medical history. Patient reports her last bowel movement was this morning and was normal for her. Labs Ordered: CBC, CMP, lipase, lactate, UA Imaging Ordered: CT abdomen pelvis Medications Ordered: Patient declined pain medication, Ciprofloxacin PO, Flagyl PO Results: Patient's CBC was unremarkable. Her CMP indicates a creatinine of 0.6. Patient's lactic acid was negative. Her lipase was 86. Patient's urinalysis did not indicate any acute abnormalities. Patient's CT scan indicates 1. Short segment focal thickening of the maldonado of the distal descending colon with a few diverticula and surrounding fat stranding. The findings are favored to be secondary to acute diverticulitis. Recommend follow-up to resolution to exclude an underlying mass. 2. Prominent vasculature in the pelvis similar to the prior study. Consider pelvic congestion syndrome. Diagnosis: Diverticulitis Consults: Kimberly (outpatient), already established Patient Education/Shared MDM: Results of lab work and imaging shared with patient. 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 Patient strongly advised to maintain hydration status upon discharge, maintain a bland diet, complete her full dose of antibiotics, and follow-up with Gastroenterology as soon as possible. She will be discharged home with a prescription for Ciprofloxacin and Flagyl. Strict return precautions provided. Patient verbalized understanding and is in agreement with plan. Vital signs stable at time of discharge. All questions answered. Differential Diagnosis Differential diagnosis: Likely abdominal pain, acute appendicitis, diverticulitis, gastroenteritis, pancreatitis and small bowel obstruction Lab Data Attestation: I reviewed the patient's lab results. 06/13/25 09:00 06/13/25 09:00 Labs: Lab Results 06/13/25 06/13/25 Range/Units 09:00 09:02 WBC 8.8 (4.5-10.0) K/mm3 RBC 4.34 (4.2-5.4) M/mm3 Hgb 13.4 (12.0-15.0) g/dL Hct 40.6 (37.0-47.0) % MCV 93.5 (80-100) fl MCH 30.9 (26-34) pg MCHC 33.0 (32-36) g/dl RDW 12.4 (11.5-14.5) % Plt Count 259 (150-375) k/mm3 MPV 10.8 H (7.4-10.4) fl Immature Gran % (Auto) 0.2 (0-0.5) % Neut % (Auto) 76.0 H (45.5-73.1) % Lymph % (Auto) 17.7 L (18.3-44.2) % Jenkins % (Auto) 4.8 (2.6-8.5) % Eos % (Auto) 0.7 (0-4.4) % Baso % (Auto) 0.6 (0.2-1.2) % Lymph # (Auto) 1.56 (0.9-3.2) K/mm3 Jenkins # (Auto) 0.4 (0.1-0.6) K/mm3 Eos # (Auto) 0.1 (0-0.3) K/mm3 Baso # (Auto) 0.1 (0.0-0.1) K/mm3 Abs Immat Gran (auto) 0.02 (0.00-0.031) K/mm3 Absolute Neuts (auto) 6.7 (1.3-6.7) K/mm3 Absolute Nucleated RBC 0.000 (0.0-0.012) K/mm3 Nucleated RBC % 0.0 (0.0-0.2) % Sodium 140 (137-145) mmol/L Potassium 3.7 (3.4-5.0) mmol/L Chloride 104 (98-107) mmol/L Carbon Dioxide 28 (22-30) mmol/L Anion Gap 8 (4-12) mmol/L BUN 12 D (7-17) mg/dL Creatinine 0.60 L (0.7-1.0) mg/dL Estim Creat Clear Calc 58 ml/min Estimated GFR > 60 (59 - ) Glucose 94 (65-110) mg/dL Lactic Acid 1.0 (0.7-2.0) mmol/L Calcium 9.0 (8.4-10.2) mg/dL Total Bilirubin 0.8 (0.2-1.3) mg/dL AST 28 (14-36) U/L ALT 28 (6-35) U/L Alkaline Phosphatase 83 (38-126) U/L Total Protein 7.7 (6.3-8.2) g/dL Albumin 4.6 (3.5-5.1) g/dL Lipase 86 (23-300) U/L Urine Color Yellow (Yellow) Urine Appearance Clear (Clear) Urine pH 5.5 (5.0-9.0) Ur Specific [place] 1.020 (1.001-1.035) Urine Protein Negative (Negative) mg/dL Urine Glucose (UA) Negative (Negative) mg/dL Urine Ketones Negative (Negative) mg/dL Ur Blood (Man) Negative (Negative) Urine Nitrate Negative (Negative) Urine Bilirubin Negative (Negative) Urine Urobilinogen 0.2 (<2.0) mg/dL Leukocyte Esterase Rfl Trace H (Negative) HOLLAND/UL Urine RBC 0-2 (0-2) /hpf Urine WBC 0-5 (0-3) /hpf Ur Squamous Epith Cells None seen (Few) /hpf Urine Bacteria None seen /hpf Urine Casts 0-2 Imaging Data Attestation: I personally reviewed and interpreted this imaging study as follows: Radiologist's impression: ITS Impressions Abdomen/Pelvis CT 06/13/25 10:19 IMPRESSION: 1. Short segment focal thickening of the maldonado of the distal descending colon with a few diverticula and surrounding fat stranding. The findings are favored to be secondary to acute diverticulitis. Recommend follow-up to resolution to exclude an underlying mass. 2. Prominent vasculature in the pelvis similar to the prior study. Consider pelvic congestion syndrome. Discharge Plan Discharge Clinical Impression: Acute diverticulitis, Abdominal pain, LLQ pain Patient Disposition: Home Condition: Stable Instructions: Antibiotic Form, Diverticulitis (ED) Additional Instructions: Please return to the ER with any worsening symptoms. Follow-up with Gastroenterology as soon as possible. Take all medications as prescribed, including regularly scheduled medications. Complete your full dose of antibiotics. Please maintain a bland, liquid diet. Patient Language: [place] Prescriptions: New ciprofloxacin HCl 500 mg tablet 500 mg PO Q12H Qty: 14 0RF metronidazole 500 mg tablet 500 mg PO Q8H 7 Days Qty: 21 0RF dicyclomine 20 mg tablet 20 mg PO TID Qty: 30 0RF Follow-up/Referrals: Coretta Espinoza APRN [Primary Care Provider, Gastroenterology] Dario Harris MD [Physician, Gastroenterology] Referral Note: gastroenterology Time of Disposition: 10:52
[2025-06-13 09:38] LABS: Alanine Aminotransferase 28 U/L (6-35); Albumin Level 4.6 g/dL (3.5-5.1); Alkaline Phosphatase 83 U/L (38-126); Anion Gap 8 mmol/L (4-12); Aspartate Amino Transferase 28 U/L (14-36); Bilirubin,Total 0.8 mg/dL (0.2-1.3); Blood Urea Nitrogen 12 mg/dL (7-17); Calcium 9.0 mg/dL (8.4-10.2); Carbon Dioxide 28 mmol/L (22-30); Chloride 104 mmol/L (98-107); Estimated CRCL calculation 58 ml/min; Estimated Glomerular Filt Rate > 60; Glucose 94 mg/dL (65-110); Lipase 86 U/L (23-300); Potassium 3.7 mmol/L (3.4-5.0); Sodium 140 mmol/L (137-145); Total Protein 7.7 g/dL (6.3-8.2)
[2025-06-13 09:43] LABS: Add Urine Microscopic? YES; Appearance Urine Clear (Clear); Glucose Urine UA Negative (Negative); Leukocyte Esterase Ur Trace LEU/UL (Negative); Nitrate Urine Negative (Negative); Non Pathogenic Casts 0-2; Specific Grav Ur 1.020 (1.001-1.035)
--- OUTSIDE RECORDS SUMMARY | 2025-06-13 09:44 | XMS_ITS | Clinical Summary ---
Author Organization [facility] Address [address] [place] [address] Care Team Providers Care Code Inspector Name Role Phone Eduin Ruby MD Primary Care Provider + Source Comments [facility],non-owned Affiliates and Associated Physician Practices is amultiple site organization consisting of ambulatory clinics and hospital sitesin [place], [place], [place] and [place]. This disclosure is being madepursuant to the Care Everywhere program and may not contain all information available regarding this patient. Last updated 18.[facility] Allergies Active Allergy Reactions Criticality Noted Date [...] - 200 mg/dL 04/28/2023 11:15 AM CDT [facility] ([facility]) Triglycerides 78 40 - 150 mg/dL 04/28/2023 11:15 AM CDT [facility] ([facility]) HDL 69(H) 40 - 60 mg/dL 04/28/2023 11:15 AM CDT [facility] ([facility]) LDL Direct 102(H) 0 - 99 mg/dL 04/28/2023 11:15 AM CDT [facility] ([facility]) VLDL 16 0 - 40 mg/dL 04/28/2023 11:15 AM CDT [facility] ([facility]) CHOL/HDL RATIO 3.00 0.00 - 4.98 04/28/2023 11:15 AM CDT [facility] ([facility]) Blood BLOOD SPECIMEN / Unknown Lab Venipuncture / Unknown 04/28/2023 9:24 AM CDT 04/28/2023 9:24 AM CDT us Eduin Ruby MD LAB - CHEMISTRY ORDERABL ES Final Result [facility] ([facility]) [address] [place] [address] from Last 3 Months or Most Recently Relevant to Health Maintenance Insurance MEDICARE [facility] [place] [id number] Care Teams Code Inspector Relationship Specialty Start Date End Date Eduin Ruby MD [address] [place] [id number] PCP - General Family Medicine 01/16/22
[2025-06-13] MEDS: CIPROFLOXACIN 500 MG TAB PO (11:04)
[2025-06-13 11:10] VITALS: BP 140/80; PULSE 73; O2SAT 100
== END 2025-06-13 11:10 | disposition home or self-care (01) ==
PROVIDERS: Emergency Medicine; Emergency Provider Registered Nurse; PCP Nurse Practitioner
DX: K57.92 Diverticulitis of intestine, part unspecified, without perforation or abscess without bleeding (principal)
CPT/HCPCS: 36415; 74177; 80053; 81001; 83605; 83690; 85025; 99284; A9270; Q9967

== ENCOUNTER 2025-07-26 00:55 | Day surgery (SDC) | payer MEDICARE, OTHER, SELFPAY ==
--- OUTSIDE RECORDS SUMMARY | 2025-04-30 01:54 | XMS_ITS | Continuity of Care Document ---
Author Organization [facility] Address [address] [place] [address] Phone Care Team Providers Care Railcar Switchman Name Role Phone Lalito Love PA-C Unavailable [...] mary kay only when flared. - Active Divigel 1 mg/gram (0.1 %) transdermal gel packet apply 1 packet by topical route every day to upper thigh - Active medroxyprogesterone 2.5 mg tablet take 2 tablet by oral route every day 5 MG - Active Rebif (with albumin) 22 mcg/0.5 mL subcutaneous syringe inject 0.5 milliliter by subcutaneous route 3 times every week at the same time on the same 3 days at least 48 hours apart. 22 MCG - Active Finacea 15 % topical foam [...] Diagnoses Date Provider Providers Copied on Encounter [facility], [address] [place] [address], [id number], tel:[phone] [facility] No Information 5 Kate Starkey. [address] [place], [place], [facility], [place]. tel:[phone] Office/Outpa [facility], [facility], [address] [place] [address], [id number], tel:[phone] [facility] 6 mo fu (chief complaint) History of nonmelanoma skin cancerHistory of dysplastic nevusSeborrhei c keratosesMulti ple benign neviCherry angiomaSeborrh eic keratoses, inflamed Jan- 5 Kate Starkey. [address] [place], [place], [facility], [place]. tel:[phone] [facility], [address] [place] [address], [id number], [place] tel:[phone] [facility] 6 month recheck (chief complaint) History of nonmelanoma skin cancerHistory of dysplastic nevusSeborrhei c keratosesCherr y angiomaMultipl e benign neviVaricose veins of lower leg Sep-1 0-202 4 Kate Lalito. [address] [place], [address], [place]. tel:[phone] [facility], [address] [place] [address], [id number], [place] tel:[phone] [facility] Seborrheic keratoses, inflamed January- 4 Kate Starkey. [address] [place], [address], [place]. tel:[phone] Office/Outpa tientVisit, [facility], [address] [place] [address], [id number], [place] tel:[phone] [facility] 6 mo fu (chief complaint) History of dysplastic nevusHistory of nonmelanoma skin cancerVaricose veins of both lower extremities, unspecified whether complicatedSeb orrheic keratosesCherr y angiomaRosacea Dec- 2- 4 Kate Lalito. [address] [place], [address], [place]. tel:[phone] [facility], [address] [place] [address], [id number], [place] tel:[phone] [facility] Actinic keratoses Dec-0 3 Kate Lalito. [address] [place], [address], [place]. tel:[phone] Office/Outpa tientVisit, [facility], [address] [place] [address], [id number], [place] tel:[phone] [facility] 6 month UBSE (chief complaint) History of nonmelanoma skin cancerHistory of dysplastic nevusCherry angiomaMultipl e benign neviSeborrheic keratoses Sep- 2-202 3 Kate Lalito. [address] [place], [address], [place]. tel:[phone] Referring Provider: Lalito Cabrera, [address] [place], [address]. tel:[phone] Office/Outpa tientVisit, [facility], [address] [place] [address], [id number], [place] tel:[phone] [facility] UBSE (chief complaint) History of nonmelanoma skin cancerActinic keratosesCherr y angiomaHistory of dysplastic nevusSeborrhei c keratosesMulti ple benign neviRosacea 3 Kate Starkey. [address] [place], [address], [place]. tel:[phone] Referring Provider: Lalito Cabrera, [address] [place], [address]. tel:[phone] [facility], [address] [place] [address], [id number], [place] tel:[phone] [facility] No Information 2 Kate Starkey. [address] [place], [address], [place]. tel:[phone] OFFICE/OUTPA TIENT VISIT, [facility], [address] [place] [address], [id number], [place] tel:[phone] [facility] And Plastic Surgery FBSE (chief complaint) History of dysplastic nevusHistory of nonmelanoma skin cancerCherry angiomaMultipl e benign neviSeborrheic keratoses 2 Kate Starkey. [address] [place], [address], [place]. tel:[phone] [facility], [address] [place] [address], [id number], [place] tel:[phone] [facility] No Information 2 Douglas Noble. [address] [place] [address], [address], [place]. tel:[phone] OFFICE/OUTPA TIENT VISIT, [facility] Maribel [facility], [address] [facility], [place], [place], [id number], [place] tel:[phone] [facility] And Plastic Surgery UBSE (chief complaint) Neoplasm of uncertain behaviorHistor y of dysplastic nevusHistory of nonmelanoma skin cancerMultiple benign nevi 1 Kate Lalito. [address] [facility], [place], [address], [place]. tel:[phone] Family History Family Member Type Diagnosis Age At Onset Mother Problem Arthritis Father Problem Skin cancer Mother Problem Diabetes mellitus Father Problem Arthritis Payers Payer name Insurance type Covered constitution party ID Authorace keating(s) Medicare MB [id number] [employer] [id number] Social History Type Description Quantity Date Captured [...] on due Goal Tdap. Due on due History Of Present Illness Encounter Date Complaint History Of Prese nt Illness 6 mo fu 6 month recheck 6 mo fu 6 month UBSE UBSE FBSE UBSE 66 year old new patient presents today for an UBSE. She was previously a patient of [facility] at [facility]. Patient states she has no areas of [...] treated: 5 Related to Seborrheic keratoses, inflamed - Reassurance that t hese are benign and need no treatment unless they were bothersome such as bleeding or rubbed by clothing. Related to Yao angioma -Follow up for any n ew or [...] Related to Varicose veins of lower leg - Reassurance that t hese are benign and need no treatment unless they were bothersome such as bleeding or rubbed by clothing. Related to Yao angioma -Follow up for any n ew or changing nevi Related to Multiple benign nevi -I discussed that se borrheic keratoses are benign and need no treatment unless these were itching, bleeding, caught on clothing or bothersome.The patient declines treatment at this time Related to Seborrheic keratoses A pply appropriate SPF 30 or greater [...] damage Related to History of dysplastic nevus The patient should k eep recommended follow up appts, wear sunscreen on a daily basis and perform self-exams at home. Follow up: 6 months Related to History of nonmelanoma skin cancer After treatment opti ons, risks and benefits [...] foam at her request. Related to Rosacea - Reassurance that t hese are benign and need no treatment unless they were bothersome such as bleeding or rubbed by clothing. Related to Yao angioma I discussed that the se are benign lesions associated with genetics and aging. No treatment needed unless desired by the patient for itching bleeding pain etc Related to Seborrheic keratoses -information for Dr Hodges given to patient. [...] clothing or bothersome. Related to Seborrheic keratoses -Follow up for any n ew or [...] damage Related to History of dysplastic nevus The patient should k eep recommended follow up appts, wear sunscreen on a daily basis and perform self-exams at home. Follow up: 6 months Related to History of nonmelanoma skin cancer -I discussed that se borrheic keratoses are [...] Ne vi Related to Multiple benign nevi After treatment opti ons, risks and benefits [...] of nonmelanoma skin cancer At the patient's [facility] uest she is given a refill of [...] to Yao angioma The patient should k [facility] recommended follow up appts, wear sunscreen daily [...]
[2025-07-17 08:44] VITALS: BMI 22.8
[2025-07-26 10:21] VITALS: BP 138/73; PULSE 91; RESP 16; TEMP 36.2; O2SAT 99
[2025-07-26] MEDS: LACTATED RINGERS 1,000 ML 150 ML IV CONT (10:30)
--- NOTE | 2025-07-26 11:04 | PM.IMHP ---
H&P: HPI History of Present Illness Date/Time: 07/26/25 11:04 Chief Complaint: Recurrent diverticulitis Narrative: Patient referred for colonoscopy due to recurrent diverticulitis. Her last colonoscopy was in and, finding only diverticulosis. Review of Systems Review of Systems: All systems reviewed & are unremarkable except as noted in HPI and below PMFSH Past Medical History Medical History Acute diverticulitis (04/2023) Surgical History Surgical History Hx of breast biopsy Family History Family History Father Acute myocardial infarction AAA (abdominal aortic aneurysm) Heart disease Mother Diabetes mellitus Breast cancer Diverticular disease Grandparent Acute myocardial infarction Cerebrovascular accident Diabetes mellitus Heart disease Pancreatic cancer Daughter Asthma Other Diabetes mellitus Sibling Diverticular disease Social History Social History Smoking status: Never smoker Second hand tobacco smoke exposure: No Alcohol intake: current Alcohol use details: occasional Substance use: never Substance use type: does not use Do You Feel Safe in your Home?: Yes Lack of Transportation: No Lack of Food: Never True Current Housing: I Have Housing Concerned About Future Housing: No Difficulty Paying Gas/Electric Bills: No Difficulty Paying for Meds: No Currently Unemployed: No Education: Associate Degree Difficulty w/ Childcare or Family Care: No Living arrangements: with family Occupation/Education: retired Gender identity (if verbalized by the patient): Female Sexual Orientation (if Verbalized by the Patient): Straight or Heterosexual Spiritual care concerns: No Agree to blood products: Yes Meds Home Medications and Allergies Home Medications ?Medication ?Instructions ?Recorded ?Confirmed ?Type ciprofloxacin HCl 500 mg tablet 500 mg PO Q12H #14 tabs 06/13/25 07/17/25 Rx dicyclomine 20 mg tablet 20 mg PO TID #30 tabs 06/13/25 07/17/25 Rx metronidazole 500 mg tablet 500 mg PO Q8H 7 days #21 tabs 06/13/25 07/17/25 Rx calcium 315 mg (as 1 tablet PO DAILY 07/17/25 07/17/25 History citrate)-vitamin D3 6.25 mcg (250 unit) tablet (Citracal + Vitamin D Maximum) tjkmchfq-dau-wxegh acid 0.4 1 tablet PO DAILY 07/17/25 07/17/25 History mg-lycopene 300 mcg-lutein 250 mcg tablet (Centrum Silver) vitamin B complex 1 tablet PO DAILY 07/17/25 07/17/25 History Allergies Allergy/AdvReac Type Severity Reaction Status Date / Time amoxicillin (From Augmentin) Allergy Mild rash Verified 07/26/25 10:21 clavulanic acid (From Allergy Mild rash Verified 07/26/25 10:21 Augmentin) codeine Allergy Unknown vomitting Verified 07/26/25 10:21 metronidazole AdvReac Mild Other Verified 07/26/25 10:21 Vital Signs Vital Signs - 24 hr 07/26/25 10:21 Temperature 97.1 F L Pulse Rate 91 Respiratory Rate 16 Blood Pressure 138/73 Pulse Oximetry 99 Oxygen Delivery Room Air Exam Const: General: cooperative and healthy appearing Resp: Effort & Inspection: normal respiratory effort and able to speak in complete sentences Auscultation: clear to auscultation bilaterally Cardio: Rate: regular rate Rhythm: regular rhythm GI: Inspection: normal to inspection GI Palp: No No hepatosplenomegaly present Auscultation: normal bowel sounds Rectal Exam: deferred Skin: General skin exam: normal color Psych: Appearance: grossly normal Mental Status: mental status grossly normal Assessment and Plan Assessment and plan (1) History of diverticulitis of colon: Code(s): Z87.19 - Personal history of other diseases of the digestive system Status: Acute Assessment and Plan: The patient is deemed a good candidate for the procedure. Consent signed. Will proceed.
--- NOTE | 2025-07-26 11:30 | WPDANESEPPF ---
Anes - Initial Pre Proc Eval Procedure: Operation Date: 07/26/25 11:00 Proposed Procedures p Diagnostic Colonoscopy - Dario Harris MD Date/Time: 07/26/25 11:30 Surgeon: Dario Harris MD Pre Op Diagnosis: Diverticulitis of intestine, part unspecified, wit Patient Data Age: 69 Gender: F Height: 1.55 m Weight: 54.3 kg Last Vital Signs Temp 97.1 F L 07/26/25 10:21 Pulse 91 07/26/25 10:21 Resp 16 07/26/25 10:21 BP 138/73 07/26/25 10:21 Pulse Ox 99 07/26/25 10:21 O2 Del Method Room Air 07/26/25 10:21 Allergies Allergy/AdvReac Type Severity Reaction Status Date / Time amoxicillin (From Augmentin) Allergy Mild rash Verified 07/26/25 10:21 clavulanic acid (From Allergy Mild rash Verified 07/26/25 10:21 Augmentin) codeine Allergy Unknown vomitting Verified 07/26/25 10:21 metronidazole AdvReac Mild Other Verified 07/26/25 10:21 Home Medications ?Medication ?Instructions ?Recorded ?Confirmed ?Type ciprofloxacin HCl 500 mg tablet 500 mg PO Q12H #14 tabs 06/13/25 07/17/25 Rx dicyclomine 20 mg tablet 20 mg PO TID #30 tabs 06/13/25 07/17/25 Rx metronidazole 500 mg tablet 500 mg PO Q8H 7 days #21 tabs 06/13/25 07/17/25 Rx calcium 315 mg (as 1 tablet PO DAILY 07/17/25 07/17/25 History citrate)-vitamin D3 6.25 mcg (250 unit) tablet (Citracal + Vitamin D Maximum) hexoadsy-obz-udmke acid 0.4 1 tablet PO DAILY 07/17/25 07/17/25 History mg-lycopene 300 mcg-lutein 250 mcg tablet (Centrum Silver) vitamin B complex 1 tablet PO DAILY 07/17/25 07/17/25 History Patient hx anesthesia problems: none Family hx anesthesia problems: none Results Review: All pre-operative results and documents have been reviewed as part of the pre-operative evaluation. [facility] Past Medical History Medical History Acute diverticulitis (04/2023) Surgical History Surgical History Hx of breast biopsy Family History Family History Father Acute myocardial infarction AAA (abdominal aortic aneurysm) Heart disease Mother Diabetes mellitus Breast cancer Diverticular disease Grandparent Acute myocardial infarction Cerebrovascular accident Diabetes mellitus Heart disease Pancreatic cancer Daughter Asthma Other Diabetes mellitus Sibling Diverticular disease Social History Social History Smoking status: Never smoker Second hand tobacco smoke exposure: No Alcohol intake: current Alcohol use details: occasional Substance use: never Substance use type: does not use Do You Feel Safe in your Home?: Yes Lack of Transportation: No Lack of Food: Never True Current Housing: I Have Housing Concerned About Future Housing: No Difficulty Paying Gas/Electric Bills: No Difficulty Paying for Meds: No Currently Unemployed: No Education: Associate Degree Difficulty w/ Childcare or Family Care: No Living arrangements: with family Occupation/Education: retired Gender identity (if verbalized by the patient): Female Sexual Orientation (if Verbalized by the Patient): Straight or Heterosexual Spiritual care concerns: No Agree to blood products: Yes Anes - Eval Final PreProcedure Day of Procedure 07/26/25 11:30 Patient weight: normal Lungs: normal air movement Airway: Mallampati scale class II Neurological: alert and oriented Last oral intake: >/= 8 hours ASA classification: I Emergent: no Anesthetic plan: proceed Anesthesia type and monitoring: general GIVS and standard monitoring Results Review: All pre-operative results and documents have been reviewed as part of the pre-operative evaluation. Healthy, active, no cp or sob w walking 1-2 fos. Informed Consent: The patient's anesthetic plan and its attendant risks and benefits were discussed with the patient/family/POA. Questions were solicited and answers provided to the satisfaction of the patient/family/POA.
--- NOTE | 2025-07-26 11:52 | S_PTH ---
PATIENT: Ruth Contreras LOC: [facility] U#:[id number] AGE/SX: 69/F ROOM: RE07/26/[address]: Dario Harris MD : [id number] BED: DIS: 07/26/2025 SPEC #: [id number] RECD: 07/26/25 13:39 STATUS: EDWARD REQ #: [id number] KOKI: 07/26/25 11:[address]: Dario aHrris DEPT: [facility] Surgical RECD BY: Negar Carter ENTERED: 07/26/25 13:40 SP TYPE: Surgical OTHR DR: Eduin Ruby MD Tissues: A - Colon Polypectomy B - Colon Polypectomy Procedures: Hematoxylin and Eosin Stain Gross and Microscopic Level 4
[2025-07-26 11:55] VITALS: BP 104/64; PULSE 84; RESP 16; O2SAT 100
[2025-07-26 12:05] VITALS: BP 119/67; PULSE 72; RESP 12; O2SAT 100
[2025-07-26 12:15] VITALS: BP 118/71; PULSE 73; RESP 20; O2SAT 100
== END 2025-07-26 12:23 | disposition home or self-care (01) ==
PROVIDERS: PCP Family Medicine Adolescent Medicine; Referring Provider Nurse Practitioner; Visit Provider Internal Medicine Gastroenterology
PROC: 0DJD8ZZ Inspection of Lower Intestinal Tract, Via Natural or Artificial Opening Endoscopic (ICD-10-PCS; CPT 45378; principal; 2025-07-26 11:00)
DX: Z09 Encounter for follow-up examination after completed treatment for conditions other than malignant neoplasm (principal); D12.2 Benign neoplasm of ascending colon; D12.3 Benign neoplasm of transverse colon; K57.30 Diverticulosis of large intestine without perforation or abscess without bleeding; Z98.890 Other specified postprocedural states; Z87.19 Personal history of other diseases of the digestive system; Z80.3 Family history of malignant neoplasm of breast; Z80.0 Family history of malignant neoplasm of digestive organs; Z82.49 Family history of ischemic heart disease and other diseases of the circulatory system
CPT/HCPCS: 45385; 88305; J2003; J2704; J7120